=== PATIENT | female | born 1950 | race Caucasian/White ===

== ENCOUNTER 2016-06-19 13:47 | Emergency (ER) | payer OTHER, MEDICARE ==
[2016-06-19] MEDS ORDERED: FOLIC ACID1 M1 PO (13:58)
[2016-06-19] MEDS ORDERED: METHOTREXATE2.5 M1 PO (13:59)
[2016-06-19] MEDS ORDERED: PREDNISONE1 M1 PO (13:59)
[2016-06-19] MEDS ORDERED: NORCO 5-325 TA1 EACH PO (14:00)
[2016-06-19] MEDS ORDERED: HYDROCHLOROTH12.5 M2 PO (14:00)
[2016-06-19] MEDS ORDERED: OMEPRAZOLE20 M3 PO (14:01)
[2016-06-19] MEDS ORDERED: ROSUVASTATIN CA20 MG PO (14:01)
[2016-06-19] MEDS ORDERED: CYMBALTA30 M1 PO (14:01)
[2016-06-19] MEDS ORDERED: MOBIC15 M2 PO (14:02)
[2016-06-19] MEDS ORDERED: [UNRECOGNIZED DRUG - OTHER] PO (14:02)
[2016-06-19] MEDS ORDERED: SYNTHROID75 MC1 PO (14:02)
[2016-06-19] MEDS ORDERED: ESTRACE1 M3 PO (14:03)
[2016-06-19] MEDS ORDERED: VALIUM5 M1 PO (14:13)
[2016-06-19] MEDS ORDERED: ASPIRIN EC325 M1 PO (14:25)
[2016-06-19] MEDS ORDERED: PROBIOTIC1 EA10 PO (14:25)
[2016-06-19] MEDS ORDERED: TYLENOL EXTRA500 M1 PO (14:25)
[2016-06-19] MEDS ORDERED: VITAMIN D-32000 UNI3 PO (14:26)
== END 2016-06-19 19:56 ==
LOC: EDMED 13:47
DX: G97.1 Other reaction to spinal and lumbar puncture (principal); Z90.49 Acquired absence of other specified parts of digestive tract; Z90.710 Acquired absence of both cervix and uterus; Z98.890 Other specified postprocedural states
CPT/HCPCS: J2270; J2405; J7030